=== PATIENT | male | born 1995 | race Caucasian/White ===

== ENCOUNTER → 2021-08-09 | Outpatient (CLI) | payer OTHER ==
--- NOTE | 2021-08-09 15:43 | CT ---
EXAMINATION TYPE: CT brain wo/w con DATE OF EXAM: 08/09/2021 COMPARISON: None available HISTORY: Headache. CT DLP: 2208 mGycm Automated exposure control for dose reduction was used. TECHNIQUE: CT scan of the brain is performed without and with IV contrast administration. FINDINGS: No acute intracranial hemorrhage. No gross acute cortical infarct. No midline shift, herniation or ve ntriculomegaly. Unremarkable ivan-white matter differentiation, basal cisterns, sella and CP angles. No gross space-occupying lesion, vasogenic edema or mass effect. No area of abnormal enhancement, men ingeal thickening or hyperenhancement. Patent major intracranial vessels. Unremarkable orbits. Left maxillary sinus polyp/retention cyst, not completely included in the scan. Clear mastoid air cells. Unremarkable calvarial bones. IMPRESSION: No acute intracranial abnormality or gross space-occupying lesion. No intracranial abnormal enhanceme nt identified. Left maxillary sinus polyp/retention cyst, not completely included in the scan.
== END | disposition home or self-care (01) ==
LOC: RADCTMAIN 14:40
PROVIDERS: ATTEND Family Medicine
DX: J33.8 Other polyp of sinus (principal); J34.1 Cyst and mucocele of nose and nasal sinus
CPT/HCPCS: 70470; Q9967

== ENCOUNTER → 2022-09-05 | Outpatient (CLI) | payer OTHER ==
--- NOTE | 2022-09-05 11:22 | P.SLEEP ---
History of Present Illness DATE: 09/05/2022 CONSULTATION/NEW PATIENT EVALUATION HISTORY OF PRESENT ILLNESS/SLEEP-WAKE EVALUATION: 26-year-old gentleman had been evaluated in the sleep center for possible obstructive sleep apnea hypopnea syndrome. SLEEP SCHEDULE: Usually sleep schedule from 3 AM until 12:30 PM. FALLING ASLEEP: Patient has difficulties to fall asleep, highest TV set and bedroom. DURING SLEEP: Patient sleeps on the side position with loud snoring, witnessed episodes of gasping for air, sleep talking, movements during the sleep and grinding teeth. Patient wakes up from sleep 4 times with nocturia. No history of hypnogogical hallucinations, sleep paralysis, or cataplexy. DURING THE DAY/WAKE STATE: In the morning patient wake up tired, has difficulties to place attention, falling asleep during the day. Patient has problems with memory, concentration and anxiety. [place] sleepiness scale is 8. Patient takes naps 1-2 times during the day usually around 3 PM. PAST MEDICAL HISTORY: Headaches, sinuses problems, acid reflux, head trauma. PAST SURGICAL HISTORY: Right knee arthroscopic surgery in 2011. MEDICATIONS: Propranolol, sumatriptan, fluticasone. SOCIAL HISTORY: Positive for smoking on and off, alcohol consumption very rarely. FAMILY HISTORY: Heart problems, asthma, sleep apnea. REVIEW OF SYSTEMS: Loud snoring, multiple awakenings from sleep, sleepiness during the day. No fevers. No double vision. No recent chest pain. No shortness of breath. No abdominal pain. No bleeding episodes. No blood in urine. No seizure episodes. PHYSICAL EXAMINATION: GENERAL: A pleasant patient without any distress. VITAL SIGNS: BP 126/84 , HR 67 , RR 16 , weight 283.8 pounds, height 5 foot 8.5 inches, body mass index 42.4 . HEENT: PERRLA, EOMI. Evaluation of oropharynx showed tongue protrudes midline, position of soft palate Mallampati 2, long uvula. NECK: Supple. No JVD. Thyroid is not palpable. 18.5 inches in circumference. LUNGS: Clear to percussion and to auscultation. Good air exchange. No wheezing or rhonchi. HEART: S1, S2 regular. No murmurs, gallops or rubs. ABDOMEN: Soft and nontender. Bowel sounds are present. No organomegaly appreciated. EXTREMITIES: No clubbing or cyanosis. RECREATIONAL RESORT MANAGER: Awake, alert, and oriented x3. Cranial nerves 2 to 7 intact. There is no fasciculation or atrophy noted. No focal deficits observed. ASSESSMENT: 1. Loud snoring, multiple awakenings from sleep, episodes of gasping for air, wide neck, sleepiness. Obstructive sleep apnea hypopnea syndrome. 2. Sleep delay syndrome. 3. Headaches, sometimes after awakenings from sleep in the morning. 4. Obesity BMI 42.4. 5 history of sleep talking. 6 . History of grinding teeth. 7. Acid reflux. 8. Status post head trauma. 9 . Status post right knee arthroscopic surgery. PLAN: 1. Polysomnography for evaluation of patient's breathing during sleep. 2. CPAP/BiPAP titration if sleep study confirms obstructive sleep apnea- hypopnea syndrome. 3. Preferable position during sleep on the side. 4. No driving if patient feels any sleepiness. Patient is aware of civil and criminal liability for unsafe driving. 5. Sleep hygiene with regular sleep time for at least 7.5-8 hours. 6. Watching and losing weight. 7. As much as possible bright light exposure in the morning after awakenings from sleep with the goal to move sleep schedule to early time. Thank you very much for referring this patient for consultation. Sincerely, Christophe Colunga MD, PhD, FAASM. Diplomat of [place] [employer], Sleep Medicine Board by [employer] [facility] [place] [facility] Note - Sleep Note Sleep Note: Temperature: Pulse Rate: Respiratory Rate: Blood Pressure: SpO2: Height: Weight: BMI: Neck Circumference:
== END ==
LOC: SLEEP 10:24
PROVIDERS: ATTEND Internal Medicine
DX: G47.33 Obstructive sleep apnea (adult) (pediatric) (principal); E66.9 Obesity, unspecified; Z68.41 Body mass index [BMI] 40.0-44.9, adult; K21.9 Gastro-esophageal reflux disease without esophagitis; Z96.651 Presence of right artificial knee joint; Z98.890 Other specified postprocedural states; Z99.89 Dependence on other enabling machines and devices
CPT/HCPCS: 99211

== ENCOUNTER → 2023-01-01 | Outpatient (CLI) | payer OTHER ==
[2023-01-01 19:52] LABS: Anion Gap 10.6 mmol/L (4.00-12.00); Carbon Dioxide 27.4 mmol/L (21.6-31.8)
[2023-01-01 21:30] LABS: Basophils # (A) 0.06 X 10*3/uL (0.00-0.10); Basophils % (A) 0.8 %; Eosinophils # (A) 0.17 X 10*3/uL (0.04-0.35); Eosinophils % (A) 2.2 %; HCT 46.3 % (39.6-50.0); HGB 15.6 d/dL (13.0-17.0); Lymphocytes % (A) 32.3 %; MCHC 33.7 d/dL (32.0-37.0); MCV 86.1 FL (80.0-97.0); Mean Platelet Volume 10.5 FL (9.5-12.2); Monocytes % (A) 7.7 %; NRBC Per 100 WBC 0 X 10*3/uL (0.00-0.01); Neutrophils # (A) 4.39 X 10*3/uL (1.80-7.70); Neutrophils % (A) 56.6 %; Platelet Count 367 X 10*3/uL (140-440); RBC 5.38 X 10*6/uL (4.40-5.60); RDW 13.4 % (11.5-14.5); WBC 7.75 X 10*3/uL (4.50-10.00)
== END | disposition home or self-care (01) ==
LOC: LABPAT 13:10
PROVIDERS: ATTEND Orthopaedic Surgery
DX: Z01.812 Encounter for preprocedural laboratory examination (principal); M75.42 Impingement syndrome of left shoulder
CPT/HCPCS: 80051; 85025

== ENCOUNTER 2023-01-10 05:37 | Day surgery (SDC) | payer OTHER ==
[2023-01-03 14:28] VITALS: BMI 41.0
--- NOTE | 2023-01-09 14:05 | HP ---
HISTORY AND PHYSICAL DATE OF SCHEDULED SURGERY: 01/10/2023. HISTORY OF PRESENT ILLNESS: Marco A Damon is a 27-year-old gentleman seen with progressive left shoulder pain. We discussed options with him. He elected to proceed with left shoulder arthroscopy. Consent regarding the procedure was obtained. PAST MEDICAL HISTORY: Noncontributory. SURGICAL HISTORY: Knee arthroscopy. DAILY MEDICATIONS: Motrin. ALLERGIES: None. SOCIAL HISTORY: Denies tobacco use. PHYSICAL EXAMINATION EVALUATION OF LEFT SHOULDER: Flexion is 120 degrees, abduction is 110 degrees. External rotation is 50 degrees with weakness and pain. Tenderness along the anterolateral acromion and rotator cuff insertion. Impingement positive at 90. Cross-body adduction sign is positive. Drop- arm sign is positive. Distal neurovascular exam is intact. RADIOGRAPHS: Radiographs of the left shoulder revealed a lateral downsloping anterior acromion. Left shoulder MRI revealed tendinosis and impingement. IMPRESSION: Left shoulder impingement with possible rotator cuff tear. PLAN: Left shoulder arthroscopy, subacromial decompression, possible arthroscopic rotator cuff repair and debridement. MMODL / IJN: [id number] /
[~2023-01-10 05:37] MED LIST: ceFAZolin 3 GM in SODIUM CHLORIDE 0.9% 100 ML IVPB PRN
[2023-01-10] MEDS ORDERED: LACTATED RINGERS 1,000 ML IV SCH (05:54)
[2023-01-10] MEDS ORDERED: HYDROmorphone 0.5 MG/0.5 ML SYRINGE IVP PRN (05:54)
[2023-01-10] MEDS ORDERED: ONDANSETRON 4 MG/2 ML VIAL IVP ONE (05:54)
[2023-01-10] MEDS ORDERED: MIDAZOLAM 2 MG/2 ML VIAL IV PRN (05:54)
[2023-01-10] MEDS ORDERED: LIDOCAINE 1% (10MG/ML) FOR IV START INTRADERMA PRN (05:54)
[2023-01-10] MEDS ORDERED: DEXAMETHASONE SOD PHOSPHATE 4 MG/ML 1 ML VIAL IV ONE (05:54)
[2023-01-10] MEDS ORDERED: MIDAZOLAM 2 MG/2 ML VIAL IVP ONE (07:17)
[2023-01-10] MEDS ORDERED: DEXAMETHASONE SOD PHOSPHATE 4 MG/ML 1 ML VIAL ONE (07:22)
[2023-01-10] MEDS ORDERED: LIDOCAINE 4% LTA KIT (4 ML) TOPICAL ONE (07:22)
[2023-01-10] MEDS ORDERED: SUCCINYLCHOLINE CHLORIDE 200 MG/10 ML VIAL IV ONE (07:22)
[2023-01-10] MEDS ORDERED: MIDAZOLAM 2 MG/2 ML VIAL ONE (07:22)
[2023-01-10] MEDS ORDERED: LIDOCAINE 2% INJ 20 MG/ML (2 ML VIAL) ONE (07:22)
[2023-01-10] MEDS ORDERED: PROPOFOL 10 MG/ML 20 ML VIAL IV ONE (07:22)
[2023-01-10] MEDS ORDERED: HYDROmorphone (PF) 1 MG/ML ONE (07:22)
[2023-01-10] MEDS ORDERED: fentaNYL (PF) 50 MCG/ML 2 ML AMP ONE (07:22)
[2023-01-10] MEDS ORDERED: ROPIVACAINE 5 MG/ML 30 ML VIAL ONE (07:22)
[2023-01-10] MEDS ORDERED: KETOROLAC 15 MG/ML 1 ML VIAL ONE (07:22)
[2023-01-10] MEDS ORDERED: LACTATED RINGERS 1,000 ML IV ONE (08:51)
[2023-01-10 09:13] VITALS: TEMP 97.6
--- NOTE | 2023-01-10 09:13 | P.OP ---
Date of Procedure: 01/10/23 Preoperative Diagnosis: Left shoulder impingement Postoperative Diagnosis: 1. Left shoulder rotator cuff tear 2. Left shoulder impingement Procedure(s) Performed: 1. Left shoulder arthroscopic rotator cuff repair 2. Left shoulder arthroscopic subacromial decompression Implants: 1Arthrex 4.75 swivel lock anchor Anesthesia: GETA, regional (Interscalene block) Surgeon: Parker Negrete Training And Quality Manager #1: Abebe Valera Estimated Blood Loss (ml): 7 Pathology: none sent Condition: stable Disposition: PACU Indications for Procedure: 27-year-old gentleman seen with progressive left shoulder pain. After treatment options were discussed, he elected to proceed with arthroscopy. Operative Findings: See description of procedure Description of Procedure: Patient underwent an interscalene block by department of anesthesia. The patient was then taken to the operative suite. The patient underwent a general anesthetic by the department of anesthesia. The patient was placed into a lateral position and secured. There was appropriate padding of the bony prominence. Left shoulder was then prepped and draped in normal sterile orthopedic fashion. We placed the extremity in 10 pounds of longitudinal traction. A posterior incision was now made for a posterior working portal site. The trocar and cannula were inserted into the glenohumeral joint. Arthroscopy was initiated. Spinal needle was now inserted anteriorly, to ascertain the anterior working portal site. An incision was now made in that area, a trocar was inserted followed by a probe. The labrum was probed and was found to be stable although was significantly diminutive. Long head biceps was probed and was found to be stable. There was no significant chondromalacia present. Instruments were now removed from the subacromial space. Utilizing the posterior working portal site, the trocar and cannula were inserted into the subacromial space. Arthroscopy initiated. I made an incision 2 fingerbreadths lateral to the acromion. I introduced my trocar followed by my ArthroCare ablator. I now began ablating thick subacromial bursal tissue, which exposed the undersurface of the anterior acromion. There was diminished subacromial space. There was a very prominent anterior acromion. A motorized bur was introduced and a subacromial decompression was performed. I also excised some osteophytes off the inferior aspect of the distal clavicle. The AC joint was visualized and noted to be mildly arthritic. I did not think enough to warrant a Rolando procedure. I turned my attention to the rotator cuff tendon. There was significant partial tearing along the distal supraspinatus area. I debrided the tendon getting down to stable tissue. Upon probing the tendon I noted a full-thickness perforation along the posterior aspect of the distal supraspinatus. I debrided the margins getting down to stable tendon tissue. The defect/tear measuring approximately 1.5 cm and was freely mobile over the footprint. I abraded. It with a motorized bur. I passed 3 everted mattress sutures through good bites of rotator cuff tendon. I punched the hole the footprint area for insertion of an anchor. All 6 limbs of suture were passed through the eyelet of a Arthrex 4.75 swivel lock anchor. I placed our eyelet into the pre-punch hole and I held that in position while Remi LEAL tension all 6 limbs of suture and deployed the anchor with good fixation noted. All residual suture limbs were now clipped. We had good compression of the tendon along the entire footprint. Instruments now removed from the portal sites. All portal sites were approximated with nylon suture. Sterile dressings were applied followed by a shoulder sling. Abebe LEAL assisted in this complex case. The patient was awakened, transferred to a bed, and taken to recovery in stable condition.
[2023-01-10 10:05] VITALS: RESP 16
[2023-01-10 10:31] VITALS: BP 118/65; PULSE 68
--- NOTE | 2023-01-10 19:47 | P.ANPRN ---
Procedure Note - Anesthesia - Nerve Block Performed Left Interscalene Single Time Out Performed: Yes Date of Procedure: 01/10/23 Procedure Start Time: : Procedure Stop Time: : Location of Patient: PreOp Indication: Acute Post-Operative Pain, Requested by Surgeon Sedation Type: Sedate with meaningful contact maintained Preparation: Sterile Prep Position: Supine Needle Types: Pajunk Needle Gauge: 21 Ultrasound used to visualize needle placement: Yes Ultrasound used to observe medication spread: Yes Blood Aspirated: No Pain Paresthesia on Injection Noted: No Resistance on Injection: Normal Image Stored and Saved: Yes Events: Uneventful and Well Tolerated (Ropivacaine 0.5% 20 mL plus dexamethasone 4 mg)
== END 2023-01-10 10:42 | disposition home or self-care (01) ==
LOC: OR 05:37
PROVIDERS: ATTEND Orthopaedic Surgery
DX: M75.102 Unspecified rotator cuff tear or rupture of left shoulder, not specified as traumatic (principal); M75.42 Impingement syndrome of left shoulder; E66.01 Morbid (severe) obesity due to excess calories; Z68.41 Body mass index [BMI] 40.0-44.9, adult; Z79.1 Long term (current) use of non-steroidal anti-inflammatories (NSAID); Z79.818 Long term (current) use of other agents affecting estrogen receptors and estrogen levels; Z79.899 Other long term (current) drug therapy; Z98.890 Other specified postprocedural states
CPT/HCPCS: 29826; 29827; 64415; C1713 ×2; J2250; J0330; J1100; J0690; J2405; J3010; J1170; J2795; J1885; J2704; J2001

== ENCOUNTER → 2023-06-18 | Outpatient (CLI) | payer OTHER ==
--- NOTE | 2023-06-18 22:06 | MR ---
EXAMINATION TYPE: MR shoulder LT wo con DATE OF EXAM: 06/18/2023 COMPARISON: Outside left shoulder x-ray June 14, 2023 HISTORY: Left shoulder pain with difficulty raising arm overhead post Rotator Cuff Surgery on Dec h 2022 TECHNIQUE: Multiplanar, multisequence imaging of the left shoulder is performed without contrast. FINDINGS: Rotator Cuff: Artifact from prior surgery in the humeral head lateral aspect is present. Some increas ed signal along the infraspinatus and supraspinatus tendons. Thinning of the fibers anteriorly. Small Focal bursal fluid along the infraspinatus tendon sagittal image 9. Surgically repaired tendons megan in intact. Subscapularis tendon intact. Rotator cuff muscle bulk preserved. Acromioclavicular Joint: Moderate to severe narrowing greatest posteriorly with fluid in the acromioc lavicular joint extending inferiorly and laterally. Glenohumeral Joint: Small joint effusion. No significant spurring. Labrum: The labrum appears grossly intact given limitation of non-arthrogram study. Biceps Tendon: The long head of biceps is in normal location within bicipital groove. Bone marrow signal: No focal abnormal marrow signal is appreciated. Other: No additional significant abnormality is appreciated. IMPRESSION: 1. Some tendinosis of the supraspinatus and infraspinatus tendons. Surgically repaired rotator cuff t endon is intact. Rotator cuff muscle bulk is preserved. 2. AC joint arthropathy and joint effusion.
== END | disposition home or self-care (01) ==
LOC: RADMRIMAIN 18:54
PROVIDERS: ATTEND Orthopaedic Surgery
DX: M67.814 Other specified disorders of tendon, left shoulder (principal); M19.012 Primary osteoarthritis, left shoulder; Z98.890 Other specified postprocedural states

== ENCOUNTER 2023-07-18 07:26 | Day surgery (SDC) | payer OTHER ==
--- NOTE | 2023-07-17 21:17 | HP ---
HISTORY AND PHYSICAL DATE OF SURGERY: 07/18/2023. HISTORY OF PRESENT ILLNESS: Marco A Damon is a 27-year-old gentleman seen with progressive left shoulder pain. We discussed options. He elected to proceed with left shoulder arthroscopy. Consent was obtained. PAST MEDICAL HISTORY: Noncontributory. PAST SURGICAL HISTORY: Knee arthroscopy, shoulder arthroscopy. DAILY MEDICATIONS: Excedrin. ALLERGIES: None. SOCIAL HISTORY: Denies tobacco use. PHYSICAL EVALUATION OF THE LEFT SHOULDER: He has previous well-healed arthroscopic portal sites with no evidence of any infective process. He flexes to 100 degrees, abduction to 90 degrees. External rotation is 20 degrees. He has tenderness along the anterolateral acromion. Impingement sign is positive at 90 degrees. Distal neurovascular exam is intact. IMAGING STUDIES: Radiographs of the left shoulder revealed a conversion to a flat acromion. There is a calcific area just lateral to the tip of the acromion. A left shoulder MRI revealed acromioclavicular joint osteoarthritis and a stable appearing rotator cuff repair. IMPRESSION: 1. Left shoulder adhesive capsulitis. 2. Left shoulder residual impingement. 3. Left shoulder acromioclavicular joint osteoarthritis. PLAN: Left shoulder arthroscopy, subacromial decompression, Rolando, lysis of adhesions. MMODL / IJN: [id number] /
[~2023-07-18 07:26] MED LIST changes: +HYDROmorphone 0.5 MG/0.5 ML SYRINGE IVP PRN; +LIDOCAINE 1% (10MG/ML) FOR IV START INTRADERMA PRN; +MIDAZOLAM 2 MG/2 ML VIAL IV PRN; -ceFAZolin 3 GM in SODIUM CHLORIDE 0.9% 100 ML IVPB PRN
[2023-07-18] MEDS: LACTATED RINGERS 1,000 ML IV SCH (08:15)
[2023-07-18] MEDS: DEXAMETHASONE SOD PHOSPHATE 4 MG/ML 1 ML VIAL IV ONE (08:39)
[2023-07-18] MEDS: ONDANSETRON 4 MG/2 ML VIAL IVP ONE ×2 (08:40→13:22)
[2023-07-18] MEDS: SCOPOLAMINE 1 MG/72 HR PATCH TRANSDERM ONE (08:40)
[2023-07-18] MEDS: MIDAZOLAM 2 MG/2 ML VIAL IVP ONE (08:46)
[2023-07-18] MEDS ORDERED: ROPIVACAINE 5 MG/ML 30 ML VIAL ONE (09:25)
[2023-07-18] MEDS ORDERED: MIDAZOLAM 2 MG/2 ML VIAL ONE (09:25)
[2023-07-18] MEDS ORDERED: fentaNYL (PF) 50 MCG/ML 2 ML AMP ONE (09:25)
[2023-07-18] MEDS ORDERED: KETOROLAC 30 MG/ML 1 ML VIAL ONE (09:25)
[2023-07-18] MEDS ORDERED: SUCCINYLCHOLINE CHLORIDE 200 MG/10 ML VIAL IV ONE (09:25)
[2023-07-18] MEDS ORDERED: PROPOFOL 10 MG/ML 20 ML VIAL IV ONE (09:25)
[2023-07-18] MEDS ORDERED: DEXAMETHASONE SOD PHOSPHATE 4 MG/ML 1 ML VIAL ONE (09:25)
[2023-07-18] MEDS ORDERED: LIDOCAINE 1% INJ 10MG/ML (20 ML MDV) ONE (09:25)
[2023-07-18] MEDS: ceFAZolin 3 GM in SODIUM CHLORIDE 0.9% 100 ML IVPB PRN (09:32)
[2023-07-18] MEDS: LACTATED RINGERS 1,000 ML IV ONE (11:12)
--- NOTE | 2023-07-18 11:24 | P.OP ---
Date of Procedure: 07/18/23 Preoperative Diagnosis: Left shoulder impingement Postoperative Diagnosis: 1. Left shoulder rotator cuff tear 2. Left shoulder impingement 3. Left shoulder adhesive capsulitis Procedure(s) Performed: 1. Left shoulder arthroscopic rotator cuff repair 2. Left shoulder arthroscopic subacromial decompression 3. Left shoulder arthroscopic lysis of adhesions Implants: 1Arthrex 4.75 swivel lock anchor Surgeon: Parker Negrete Melt Room Operator #1: Abebe Valera Estimated Blood Loss (ml): 10 Pathology: none sent Condition: stable Disposition: PACU Indications for Procedure: 27-year-old patient seen with progressive left shoulder pain along with limited range of motion. He had history of previous arthroscopy. We discussed options for treatment, he elected to proceed with arthroscopy. Operative Findings: See description of procedure Description of Procedure: Patient underwent an interscalene block by department of anesthesia. The patient was then taken to the operative suite. The patient underwent a general anesthetic by the department of anesthesia. The patient was placed into a lateral position and secured. There was appropriate padding of the bony prominence. Left shoulder was then prepped and draped in normal sterile orthopedic fashion. We placed the extremity in 10 pounds of longitudinal traction. A posterior incision was now made for a posterior working portal site. The trocar and cannula were inserted into the glenohumeral joint. Arthroscopy was initiated. Spinal needle was now inserted anteriorly, to ascertain the anterior working portal site. An incision was now made in that area, a trocar was inserted followed by a probe. There was very mild hyperemia along the proximal aspect of the long head biceps tendon. I did not think enough irritation to warrant a tenodesis. The labrum was probed and was found to be stable. There was no significant chondromalacia present glenohumeral joint. There were some obvious adhesions noted along the anterior aspect of the shoulder. I now performed arthroscopic lysis of those adhesions. I probed the area again it was found to be stable. Instruments were now removed from the subacromial space. Utilizing the posterior working portal site, the trocar and cannula were inserted into the subacromial space. Arthroscopy initiated. I made an incision 2 fingerbreadths lateral to the acromion. I introduced my trocar followed by my ArthroCare ablator. I now began ablating thick subacromial bursal tissue, which exposed the undersurface of the anterior acromion. There was substantial adhesions noted in the subacromial space as well. I at this point performed a lysis of the adhesions. I did note a residual large area of calcific changes along the posterior subacromial space. I decompressed the area with a motorized bur. The area appeared well decompressed. The remaining subacromial space remained well decompressed as well. I did note a full-thickness recurrent rotator cuff tendon tear. It was an area of the previous repair or slightly posterior to that. I debrided out some residual sutures as well as debride out the margins of the tendon getting down to stable tendon tissue. I now abraded the footprint with a motorized bur. With the assistance of Remi LEAL I passed 3 inverted mattress sutures through good bites of rotator cuff tendon. I now punched a hole in the footprint area for insertion of an anchor. All 6 limbs of suture were passed through the eyelet of an Arthrex 4.75 swivel lock anchor. I placed the eyelet into our prepunched a hole. I held in position while Remi LEAL tensioned all 6 limbs of suture and deployed the anchor with good fixation noted. All residual suture limbs were now clipped. We had good compression of the tendon along the entire footprint. Instruments now removed from the portal sites. All portal sites were approximated with nylon suture. Sterile dressings were applied followed by a shoulder immobilizer. Abebe LEAL assisted in this case. The patient was awakened, transferred to a bed, and taken to recovery in stable condition.
[2023-07-18 12:12] VITALS: TEMP 97.1
[2023-07-18 12:45] VITALS: RESP 18
[2023-07-18] MEDS ORDERED: HYDROcodone/APAP 7.5-325MG 1 EACH TAB ONE (12:55)
[2023-07-18] MEDS: HYDROcodone/APAP 7.5-325MG 1 EACH TAB PO ONE (12:58)
[2023-07-18] MEDS ORDERED: ONDANSETRON 4 MG/2 ML VIAL ONE (13:21)
[2023-07-18 13:51] VITALS: BP 118/75; PULSE 92
--- NOTE | 2023-07-18 19:10 | P.ANPRN ---
Procedure Note - Anesthesia - Nerve Block Performed Left Interscalene Single Time Out Performed: Yes Date of Procedure: 07/18/23 Procedure Start Time: 08:46 Procedure Stop Time: 08:51 Location of Patient: PreOp Indication: Acute Post-Operative Pain, Requested by Surgeon Sedation Type: Sedate with meaningful contact maintained Preparation: Sterile Prep Position: Supine Needle Types: Pajunk Needle Gauge: 21 Ultrasound used to visualize needle placement: Yes Ultrasound used to observe medication spread: Yes Blood Aspirated: No Pain Paresthesia on Injection Noted: No Resistance on Injection: Normal (Ropivacaine 0.5% 20 cc plus dexamethasone 4 mg) Image Stored and Saved: Yes Events: Uneventful and Well Tolerated
== END 2023-07-18 14:02 | disposition home or self-care (01) ==
LOC: OR 07:26
PROVIDERS: ATTEND Orthopaedic Surgery
DX: M75.102 Unspecified rotator cuff tear or rupture of left shoulder, not specified as traumatic (principal); M75.42 Impingement syndrome of left shoulder; M75.02 Adhesive capsulitis of left shoulder; M19.012 Primary osteoarthritis, left shoulder; G47.33 Obstructive sleep apnea (adult) (pediatric); K21.9 Gastro-esophageal reflux disease without esophagitis; E66.01 Morbid (severe) obesity due to excess calories; Z79.899 Other long term (current) drug therapy; Z68.41 Body mass index [BMI] 40.0-44.9, adult
CPT/HCPCS: 29826; 29827; 64415; C1713 ×2; J2250; J0330; J1100; J0690; J2405; J2001; J3010; J1885; J2795; J2704

== ENCOUNTER → 2023-08-06 | Outpatient (CLI) | payer OTHER ==
--- NOTE | 2023-08-06 09:59 | US ---
EXAMINATION TYPE: US abdomen complete DATE OF EXAM: 08/06/2023 COMPARISON: NONE CLINICAL INDICATION: Male, 27 years old with history of R10.10 UPPER ABDOMINAL PAIN, UNSPECIFIED; Shola n x a couple years, pain gets worse after eating. TECHNIQUE: Multiple sonographic images of the abdomen are obtained. FINDINGS: EXAM MEASUREMENTS: Liver Length: 16.5 cm Gallbladder Wall: 0.14 cm CBD: Obscured Spleen: 12.6 cm Right Kidney: 11.7 x 5.3 x 4.7 cm Left Kidney: 11.7 x 5.3 x 5.4 cm OPERATOR PREFINISH NOTES: Limited due to gas and patient body habitus Pancreas: Not well seen Liver: Increased echogenicity and attenuation. Appears heterogeneous. *Hypoechoic, indistinct area seen adjacent to the gallbladder: 2.4 x 1.8 x 1.1 cm. Gallbladder: Appears anechoic, measures 3.7 cm in transverse. Evidence for sonographic Mooney's sign: No CBD: Obscured Spleen: Appears wnl Right Kidney: No hydronephrosis or masses seen Left Kidney: No hydronephrosis or masses seen Upper IVC: Appears wnl Abd Aorta: Limited visibility of proximal and mid segments. Distal aorta appears wnl. Iliacs were ob scured. IMPRESSION: 1. Hepatic steatosis with focal fatty sparing next to gallbladder fossa. 2. No evidence for acute process.
== END | disposition home or self-care (01) ==
LOC: RADUSWWP 07-30 07:12
PROVIDERS: ATTEND Family Medicine
DX: K76.0 Fatty (change of) liver, not elsewhere classified (principal); K82.8 Other specified diseases of gallbladder
CPT/HCPCS: 76700

== ENCOUNTER → 2024-07-28 | Outpatient (CLI) | payer OTHER ==
--- NOTE | 2024-07-28 08:56 | MR ---
EXAMINATION TYPE: MR lumbar spine wo con DATE OF EXAM: 07/28/2024 8:40 AM COMPARISON: None. CLINICAL INDICATION: Male, 28 years old with history of M79.621 R ARM PAIN M54.50 BACK PAIN; PHH, Low back pain into Rt leg TECHNIQUE: Multi planar, multi sequence imaging was performed utilizing: T1-weighted, T2-weighted, a nd turbo inversion recovery imaging of the lumbar spine. IV Contrast: mL (None, if empty) FINDINGS: Alignment: The lumbar vertebral bodies have preserved heights and alignment. Cord: The conus medullaris and the distal spinal cord appear unremarkable with regards to their signa l intensity and morphology. Bones/Discs: Mild degeneration changes throughout the spine with osteophyte formation and facet joint arthropathy. Intervertebral disc signal is maintained. No abnormal inversion recovery signal to sugg est bony edema. T12-L1: No evidence of significant spinal canal stenosis or neural foraminal stenosis. L1-L2: No evidence of significant spinal canal stenosis or neural foraminal stenosis. L2-L3: No evidence of significant spinal canal stenosis or neural foraminal stenosis. L3-L4: No evidence of significant spinal canal stenosis or neural foraminal stenosis. L4-L5: No evidence of significant spinal canal stenosis or neural foraminal stenosis. L5-S1: The disc has a rounded posterior morphology without significant spinal canal stenosis. Facet j oint arthropathy with mild bilateral neural foraminal stenosis. No significant spinal canal or neural foraminal stenosis in the remainder of the visualized levels. Other findings: None. IMPRESSION: No definitive evidence of disc herniation or significant spinal canal stenosis. [facility], , 07/28/2024 8:54 AM
--- NOTE | 2024-07-28 09:17 | US ---
EXAMINATION TYPE: US venous doppler duplex UE RT DATE OF EXAM: 07/28/2024 COMPARISON: NONE CLINICAL INDICATION: Male, 28 years old with history of M79.621 PAIN; Pt states pain in right arm las t month while ill with the flu TECHNIQUE: Grayscale, color Doppler and spectral Doppler imaging of the upper extremity. SIDE PERFORMED: Right VESSELS IMAGED: IJV Subclavian Vein Axilla Vein Brachial Vein(s) Radial Paired Veins Ulnar Paired Veins Cephalic Vein* Basilic Vein* (*superficial vessels) FINDINGS: Right Arm: Negative for DVT Grayscale, color doppler, spectral doppler imaging performed of the deep veins of the upper extremiti es. IMPRESSION: No ultrasound evidence for acute deep or superficial venous thrombosis in the right upper extremity. [facility], , 07/28/2024 9:14 AM
== END | disposition home or self-care (01) ==
LOC: RADMRIMAIN 08:01
PROVIDERS: ATTEND Family Medicine
DX: M79.621 Pain in right upper arm (principal); M54.50 Low back pain, unspecified
CPT/HCPCS: 72148

== ENCOUNTER → 2024-09-29 | Outpatient (CLI) | payer OTHER ==
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
== END | disposition home or self-care (01) ==
LOC: RADMRIMAIN 08:26
PROVIDERS: ATTEND Family Medicine
DX: S83.241A Other tear of medial meniscus, current injury, right knee, initial encounter (principal); S83.281A Other tear of lateral meniscus, current injury, right knee, initial encounter; M25.461 Effusion, right knee; M22.41 Chondromalacia patellae, right knee; Y99.1 Military activity